=== PATIENT | male | born 1980 | race Native Hawaiian/Other Pacific Islander ===

== ENCOUNTER 2016-06-28 08:42 | Emergency (ER) | payer SELFPAY ==
[2016-06-28] MEDS ORDERED: NACL 0.9% 1000 ML 1,000 ML IV ONE (11:37)
--- NOTE | 2016-06-28 11:43 | Emergency Department Report ---
ED Seizure HPI - General Chief Complaint: Seizure Stated Complaint: SEIZURE Time Seen by Provider: 06/28/16 11:37 Source: patient Mode of arrival: Ambulatory Limitations: No Limitations - History of Present Illness Initial Comments: Patient is a 35-year-old male with no past medical history presenting to the ER status post seizure. Patient was in the grocery store when he was found down and witnessed general tonoclonic seizure by bystanders. Patient presents with a mild headache and a laceration to the back of the skull. Triage noted patient has a history of migraines and seizure disorder however after speaking to the patient says he has no medical problems, but medical records show he does have epilepsy and is on dilantin. Otherwise no fevers, chills, blurry vision, vision changes, neck pain, chest pain, shortness of breath, abdominal pain, nausea vomiting diarrhea, travel, sick contacts. MD Complaint: seizure - Related Data Previous Rx's Medication Instructions Recorded Last Taken Type Phenytoin [Dilantin] 100 mg PO BID #60 capsule 06/28/16 Unknown Rx Allergies Allergy/AdvReac Type Severity Reaction Status Date / Time No Known Allergies Allergy Unverified 04/23/14 17:03 ED Review of Systems ROS: Stated complaint: SEIZURE Other details as noted in HPI Comment: All other systems reviewed and negative ED Past Medical Hx - Past Medical History Previous Medical History?: Yes Hx Congestive Heart Failure: No Hx Diabetes: No Hx Seizures: No Hx Asthma: No Hx COPD: No - Surgical History Past Surgical History?: No - Social History Smoking Status: Never Smoker Substance Use Type: None (denies illicit drug use) - Medications Home Medications: Home Medications Medication Instructions Recorded Confirmed Last Taken Type Phenytoin [Dilantin] 100 mg PO BID #60 capsule 06/28/16 Unknown Rx ED Physical Exam - General Limitations: No Limitations General appearance: alert, in no apparent distress - Head Head exam: Present: normocephalic, other (laceration to occiput) - Eye Eye exam: Present: normal appearance - ENT ENT exam: Present: mucous membranes moist - Neck Neck exam: Present: normal inspection - Respiratory Respiratory exam: Present: normal lung sounds bilaterally. Absent: respiratory distress - Cardiovascular Cardiovascular Exam: Present: regular rate, normal rhythm. Absent: systolic murmur, diastolic murmur, rubs, gallop - GI/Abdominal GI/Abdominal exam: Present: soft, normal bowel sounds - Rectal Rectal exam: Present: deferred - Extremities Exam Extremities exam: Present: normal inspection - Back Exam Back exam: Present: normal inspection - Neurological Exam Neurological exam: Present: alert, oriented X3, CN II-XII intact, normal gait, reflexes normal. Absent: motor sensory deficit - Psychiatric Psychiatric exam: Present: normal affect, normal mood - Skin Skin exam: Present: warm, dry, normal color. Absent: rash ED Course Vital Signs 06/28/16 06/28/16 06/28/16 09:00 09:09 11:00 Temperature 98.6 F Pulse Rate 78 75 Respiratory 16 15 18 Rate Blood Pressure 103/66 Blood Pressure 95/62 [Left] O2 Sat by Pulse 98 100 100 Oximetry 06/28/16 13:00 Temperature Pulse Rate 74 Respiratory 18 Rate Blood Pressure Blood Pressure 111/72 [Left] O2 Sat by Pulse 100 Oximetry - Reevaluation(s) Reevaluation #1: 06/28/16 13:56 Pt re-evaluated, patient AAOx3 no futher seizure activity, head lac is punctate , no need for sutures or karen. Stressed to the patient need for med compliance. Pt to follow up with Dr Earnestine Nguyen Pt ambulatory without neurological dysfunction ED Medical Decision Making - Lab Data Result diagrams: 06/28/16 12:00 06/28/16 12:00 - EKG Data -: EKG Interpreted by Me (time 1301) EKG shows normal: sinus rhythm (sinus rhythm), axis (normal axis), intervals ( QTC 420 ms), ST-T waves (no ST changes, no STEMI) Rate: normal (73 bpm) - Radiology Data CT head: stable, no acute changes CT C spine: WNL - Medical Decision Making I looked at patients prior records. Pt does indeed have a seizure disorder, patient reluctant to admit he is on medication for seizures. When confronted, the patient admits he is supposed to be taking phenytoin. Pt was last taking phenytoin 200mg PO BID and follows with Dr Earnestine Nguyen. I will load the patient with phenytoin 1gm and will give him a script for phenytoin. I explained to him the importance of medication compliance and follow up with his doctors. I also instructed patient to refrain from driving for the next 6 months or until he is cleared by his neurologist or PMD Critical care attestation.: If time is entered above; I have spent that time in minutes in the direct care of this critically ill patient, excluding procedure time. ED Disposition Clinical Impression: Seizure disorder, Laceration of head, Minor head injury Disposition: DISCHARGED TO HOME OR SELFCARE Is pt being admited?: No Condition: Stable Instructions: Epilepsy (ED), Minor Head Injury (ED) Additional Instructions: PLEASE REFRAIN FROM DRIVING FOR THE NEXT 6 MONTHS, OR UNTIL CLEARED BY YOUR NEUROLOGIST OR PRIMARY CARE PHYSICIAN PLEASE MAKE AN APPT WITH YOUR DOCTOR DR EARNESTINE NGUYEN FOR A FOLLOW UP APPT Prescriptions: Phenytoin [Dilantin] 100 mg PO BID #60 capsule Referrals: PRIMARY CARE, [Primary Care Provider] - 3-5 Days
--- NOTE | 2016-06-28 11:44 | Cat Scan Report ---
CT HEAD WITHOUT CONTRAST: 06/28/16 08:42:00 CLINICAL: Fall and headache. TECHNIQUE: 2.5-mm noncontrast scans. COMPARISON:09/15/14 CT head and 09/16/14 MRI brain. FINDINGS: The ventricles and sulci are normal for age.A 1.5 x 1.4 cm left upper lobe hyperdense mass is unchanged compared to the prior exam and is consistent with a benign cavernous angioma. No other mass or mass effect. No abnormal hypodensity No hemorrhage, edema or extra-axial collection. The sinuses are clear. Normal orbits and soft tissues. The calvarium and skull base are intact. No fracture. IMPRESSION: No acute change. 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
[2016-06-28] MEDS ORDERED: BOOSTRIX IM ONE (11:46)
--- NOTE | 2016-06-28 11:49 | Cat Scan Report ---
CT CERVICAL SPINE WITHOUT CONTRAST:06/28/16 CLINICAL: Fall and neck pain. TECHNIQUE: Volumetric acquisition and 1.25-mm scan reconstructions without contrast. Sagittal and coronal reformats were performed. FINDINGS: Normal vertebral body height, alignment and disk spaces. No fracture or subluxation. Normal soft tissues and airway. No apparent disc protrusions or bulges. IMPRESSION: Normal with no apparent traumatic injury.
[2016-06-28 12:10] LABS: Basophils % (Auto) 0.8 % (0.0-1.8); Eosinophils % (Auto) 0.3 % (0.0-4.3); Hematocrit 42.6 % (35.5-45.6); Hemoglobin 14.8 gm/dl (11.8-15.2); Mean Corpuscular HGB Conc 35 % (32-34); Mean Corpuscular Hemoglobin 31 pg (28-32); Mean Corpuscular Volume 90 fl (84-94); Platelet Count 241 K/mm3 (140-440); Red Blood Count 4.74 M/mm3 (3.65-5.03); Red Cell Distribution Width 12.7 % (13.2-15.2); White Blood Count 9.9 K/mm3 (4.5-11.0)
[2016-06-28 12:39] LABS: Alanine Aminotransferase 20 units/L (7-56); Albumin 4.5 g/dL (3.9-5); Albumin/Globulin Ratio 1.5 %; Alkaline Phosphatase 113 units/L (35-129); Anion Gap 14 mmol/L; Blood Urea Nitrogen 9 mg/dL (9-20); Calcium 9.2 mg/dL (8.4-10.2); Carbon Dioxide 28 mmol/L (22-30); Chloride 99.9 mmol/L (98-107); Glucose 95 mg/dL (75-100); Potassium 4.3 mmol/L (3.6-5.0); Sodium 138 mmol/L (137-145); Total Protein 7.5 g/dL (6.3-8.2)
[2016-06-28] MEDS ORDERED: DILANTIN 1,000 MG in NACL 0.9% 250ML 250 ML IV ONE (13:00)
[2016-06-28 13:32] LABS: Urine Drugs of Abuse Note Disclamer
[2016-06-28 13:43] LABS: Bilirubin,Urine NEG (Negative); Blood,Urine SM (Negative); Ketones,Urine NEG (Negative); Leukocyte Esterase,Urine NEG (Negative); Mucus,Urine FEW /HPF; Nitrite,Urine NEG (Negative); Protein,Urine <15 mg/dL mg/dL (Negative); Urobilinogen,Urine < 2.0 mg/dL (<2.0)
[2016-06-28 14:59] VITALS: BP 103/53
== END 2016-06-28 14:59 | disposition home or self-care (01) ==
LOC: ED 08:42
DX: G40.909 Epilepsy, unspecified, not intractable, without status epilepticus (principal); S01.91XA Laceration without foreign body of unspecified part of head, initial encounter; X58.XXXA Exposure to other specified factors, initial encounter; Y93.9 Activity, unspecified; Y92.9 Unspecified place or not applicable; Y99.9 Unspecified external cause status
CPT/HCPCS: 36415; 70450; 72125; 80053; 80185; 80307; 81001; 82962; 85025; 90471; 90715; 93005; 93010; 96361; 96365; 99285; J1165; J7030; J7050

== ENCOUNTER 2017-02-07 17:56 | Emergency (ER) | payer SELFPAY ==
--- NOTE | 2017-02-07 18:38 | Emergency Department Report ---
ED Seizure HPI - General Stated Complaint: SEIZURE Time Seen by Provider: 02/07/17 18:14 Source: patient Limitations: Language Barrier - History of Present Illness Initial Comments: 36-year-old male the past 90 mL presents to the hospital after having one seizure today. Patient states he's been compliant with his Dilantin 100 mg 3 times a day and his Keppra 1000 mg twice a day but does admit to missing a couple of doses here and there. He is due for a second dose of Keppra at 8 PM. He denies any pain currently. 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 - Related Data Previous Rx's Medication Instructions Recorded Last Taken Type Phenytoin [Dilantin] 100 mg PO BID #60 capsule 06/28/16 Unknown Rx Allergies Allergy/AdvReac Type Severity Reaction Status Date / Time No Known Allergies Allergy Unverified 04/23/14 17:03 ED Review of Systems ROS: Stated complaint: SEIZURE Other details as noted in HPI Comment: All other systems reviewed and negative Other: Constitutional: No fevers chills Eyes: No eye pain visual changes ENT: No ear pain or throat pain Neck: Denies pain Respiratory: Denies cough wheezing shortness of breath Cardiovascular: Denies chest pain, palpitations, syncope GI: Denies abdominal pain, nausea, vomiting, diarrhea : Denies dysuria Musculoskeletal: Denies back pain Skin: Denies rash, lesions, erythema Neurologic: Denies headache, numbness, weakness Psychiatric: Denies suicidal ideation, hallucinations ED Past Medical Hx - Past Medical History Hx Congestive Heart Failure: No Hx Diabetes: No Hx Seizures: No Hx Asthma: No Hx COPD: No - Social History Smoking Status: Never Smoker Substance Use Type: None (denies illicit drug use) - Medications Home Medications: Home Medications Medication Instructions Recorded Confirmed Last Taken Type Phenytoin [Dilantin] 100 mg PO BID #60 capsule 06/28/16 Unknown Rx ED Physical Exam - Other Other exam information: General: No limitations, patient is alert in no acute distress Head exam: Atraumatic, normocephalic Eyes exam: Normal appearance ENT: Moist mucous membrane, normal oropharynx Neck exam: Normal inspection, full range of motion, no meningismus nontender Respiratory exam: Clear to auscultation bilateral, no wheezes, rales, crackles Cardiovascular: Normal rate and rhythm, normal heart sounds Abdomen: Soft, nondistended, and nontender, with normal bowel sounds, no rebound, or guarding Extremity: Full range of motion normal inspection no deformity Back: Normal Inspection, full range of motion, no tenderness Neurologic: Alert, oriented x3, cranial nerves intact, no motor or sensory deficit Psychiatric: normal affect, normal mood Skin: Warm, dry, intact ED Course Vital Signs 02/07/17 18:39 Temperature 99.8 F H Pulse Rate 86 Blood Pressure 148/85 O2 Sat by Pulse 99 Oximetry ED Medical Decision Making - Lab Data Result diagrams: 02/07/17 18:38 02/07/17 18:38 Lab Results 02/07/17 02/07/17 02/07/17 Range/Units 18:38 18:38 18:38 WBC 7.6 (4.5-11.0) K/mm3 RBC 4.70 (3.65-5.03) M/mm3 Hgb 14.7 (11.8-15.2) gm/dl Hct 42.8 (35.5-45.6) % MCV 91 (84-94) fl MCH 31 (28-32) pg MCHC 34 (32-34) % RDW 13.0 L (13.2-15.2) % Plt Count 218 (140-440) K/mm3 Lymph % (Auto) 18.3 (13.4-35.0) % [place] % (Auto) 6.9 (0.0-7.3) % Eos % (Auto) 1.8 (0.0-4.3) % Baso % (Auto) 0.7 (0.0-1.8) % Lymph # 1.4 (1.2-5.4) K/mm3 [place] # 0.5 (0.0-0.8) K/mm3 Eos # 0.1 (0.0-0.4) K/mm3 Baso # 0.1 (0.0-0.1) K/mm3 Seg Neutrophils % 72.3 H (40.0-70.0) % Seg Neutrophils # 5.5 (1.8-7.7) K/mm3 Sodium 139 (137-145) mmol/L Potassium 4.1 (3.6-5.0) mmol/L Chloride 101.4 (98-107) mmol/L Carbon Dioxide 22 (22-30) mmol/L Anion Gap 20 mmol/L BUN 12 (9-20) mg/dL Creatinine 0.6 L (0.8-1.5) mg/dL Estimated GFR > 60 ml/min BUN/Creatinine Ratio 20 % Glucose 107 H (75-100) mg/dL Calcium 9.1 (8.4-10.2) mg/dL Magnesium 1.90 (1.7-2.3) mg/dL Phenytoin 8.5 L (10.0-20.0) ug/mL - Medical Decision Making Patient Dilantin was subtherapeutic and likely the cause of this breakthrough seizure. No other acute lab or physical abnormality identified. Patient will be discharged home continue his current medications he states he does not need a refill in his meds - Differential Diagnosis medication noncompliance, subtherapeutic level, electrolyte abnormality, Critical Care Time: No Critical care attestation.: If time is entered above; I have spent that time in minutes in the direct care of this critically ill patient, excluding procedure time. ED Disposition Clinical Impression: Seizure, Subtherapeutic serum dilantin level Disposition: TO HOME OR SELFCARE Is pt being admited?: No Does the pt Need Aspirin: No Condition: Stable Instructions: Epilepsy (ED) Additional Instructions: Continue your medication and take every day as scheduled and do not miss doses or take doses late. Follow-up with his doctor. Return if symptoms worsen. Contine tomando brenner medicamento y tome todos los swift segn lo programado y no se pierda dosis o tome dosis tarde. Seguimiento con brenner mdico. Regrese si los s ntomas empeoran. Referrals: PRIMARY CARE, [Primary Care Provider] - 3-5 Days DICK NOWAK MD [Staff Physician] - 3-5 Days (neurologist) Time of Disposition: 21:23 Print Language: SURINAMESE
[2017-02-07 18:58] LABS: Basophils # (Auto) 0.1 K/mm3 (0.0-0.1); Basophils % (Auto) 0.7 % (0.0-1.8); Eosinophils # (Auto) 0.1 K/mm3 (0.0-0.4); Eosinophils % (Auto) 1.8 % (0.0-4.3); Hematocrit 42.8 % (35.5-45.6); Hemoglobin 14.7 gm/dl (11.8-15.2); Lymphocytes # (Auto) 1.4 K/mm3 (1.2-5.4); Lymphocytes % (Auto) 18.3 % (13.4-35.0); Mean Corpuscular HGB Conc 34 % (32-34); Mean Corpuscular Hemoglobin 31 pg (28-32); Mean Corpuscular Volume 91 fl (84-94); Monocytes # (Auto) 0.5 K/mm3 (0.0-0.8); Monocytes % (Auto) 6.9 % (0.0-7.3); Platelet Count 218 K/mm3 (140-440)
[2017-02-07 19:18] LABS: BUN/Creatinine Ratio 20; Blood Urea Nitrogen 12 mg/dL (9-20); Calcium 9.1 mg/dL (8.4-10.2); Hemolysis Index 27
[2017-02-07] MEDS ORDERED: KEPPRA PO ONE (19:18)
[2017-02-07] MEDS ORDERED: DILANTIN 1,000 MG in NACL 0.9% 250ML 250 ML IV ONE (20:00)
[2017-02-07 21:55] VITALS: BP 128/88
== END 2017-02-07 21:55 | disposition home or self-care (01) ==
LOC: ED 17:56
DX: R56.9 Unspecified convulsions (principal); R79.1 Abnormal coagulation profile
CPT/HCPCS: 36415; 80048; 80185; 83735; 85025; 96365; 99284; J1165; J7050

== ENCOUNTER 2017-05-31 12:18 | Emergency (ER) | payer SELFPAY ==
[2017-05-31] MEDS ORDERED: KEPPRA PO ONE (13:20)
--- NOTE | 2017-05-31 13:25 | Emergency Department Report ---
ED Seizure HPI - General Chief Complaint: Seizure Stated Complaint: SEIZURES Time Seen by Provider: 05/31/17 13:06 Source: patient, EMS Mode of arrival: Stretcher Limitations: No Limitations - History of Present Illness Initial Comments: Patient is 36 years old male history of seizure on Dilantin and Keppra. Patient presented to the ER after one episode of seizure that happened at home. Patient is back to normal and he is not postictal anymore. Patient denied any fever, headache, neck pain or neck stiffness. Patient denied any injury or trauma. He stated that he is maintaining his medication is supposed to. He also stated that he is not been getting enough sleep. MD Complaint: seizure -: Sudden Description of Episode: loss of consciousness, tonic-clonic movement Witnessed:: Yes Trauma: No Seizure History: known seizure disorder, history of non-compliance Place: home Possible Precipitating Event: none Associated Symptoms: denies other symptoms. denies: chest pain, confusion, cough, diaphoresis, fever/chills, loss of appetite, malaise, rash, shortness of breath, syncope, weakness, tongue injury, shoulder dislocation Treatments Prior to Arrival: none - Related Data Home Medications Medication Instructions Recorded Confirmed Last Taken Phenytoin [Dilantin] 200 mg PO TID 05/31/17 05/31/17 05/31/17 08:00 Allergies Allergy/AdvReac Type Severity Reaction Status Date / Time No Known Allergies Allergy Unverified 04/23/14 17:03 ED Review of Systems ROS: Stated complaint: SEIZURES Other details as noted in HPI Comment: All other systems reviewed and negative Constitutional: denies: chills, fever Respiratory: denies: cough, orthopnea, shortness of breath, SOB with exertion, SOB at rest Cardiovascular: denies: chest pain, palpitations, dyspnea on exertion, orthopnea Gastrointestinal: denies: abdominal pain, nausea, vomiting, diarrhea, constipation, hematemesis, melena, hematochezia Genitourinary: denies: urgency, dysuria, frequency, hematuria, discharge Neurological: denies: headache, weakness, numbness, paresthesias ED Past Medical Hx - Past Medical History Previous Medical History?: Yes Hx Congestive Heart Failure: No Hx Diabetes: No Hx Seizures: Yes Hx Asthma: No Hx COPD: No - Surgical History Past Surgical History?: No - Social History Smoking Status: Never Smoker Substance Use Type: None - Medications Home Medications: Home Medications Medication Instructions Recorded Confirmed Last Taken Type Phenytoin [Dilantin] 200 mg PO TID 05/31/17 05/31/17 05/31/17 08:00 History ED Physical Exam - General Limitations: No Limitations General appearance: alert, in no apparent distress - Head Head exam: Present: atraumatic, normocephalic, normal inspection - Eye Eye exam: Present: normal appearance, PERRL - ENT ENT exam: Present: normal exam, normal orophraynx, mucous membranes moist - Neck Neck exam: Present: normal inspection, full ROM. Absent: tenderness, meningismus - Respiratory Respiratory exam: Present: normal lung sounds bilaterally. Absent: respiratory distress, chest wall tenderness - Cardiovascular Cardiovascular Exam: Present: regular rate, normal rhythm, normal heart sounds - GI/Abdominal GI/Abdominal exam: Present: soft, normal bowel sounds. Absent: distended, tenderness, guarding, rebound, rigid, organomegaly, mass, bruit, pulsatile mass , hernia - Extremities Exam Extremities exam: Present: normal inspection, full ROM, normal capillary refill - Back Exam Back exam: Present: normal inspection, full ROM. Absent: tenderness, CVA tenderness (R), CVA tenderness (L), muscle spasm, paraspinal tenderness, vertebral tenderness - Neurological Exam Neurological exam: Present: alert, oriented X3, CN II-XII intact, normal gait - Skin Skin exam: Present: warm, intact, normal color ED Course Vital Signs 05/31/17 05/31/17 05/31/17 12:53 12:54 13:01 Temperature 98.6 F 98.4 F Pulse Rate 90 78 Respiratory 18 14 14 Rate Blood Pressure 125/78 114/75 Blood Pressure 114/75 [Right] O2 Sat by Pulse 98 96 96 Oximetry - Reevaluation(s) Reevaluation #1: 05/31/17 15:15 Patient observed in the ER, no seizure. I advised patient to be compliant with his medication. I also advised him to limit his his screening time and have enough sleep. I also advised him to follow-up with his neurologist in the next 2-3 days. ED Medical Decision Making - Lab Data Result diagrams: 05/31/17 13:27 05/31/17 13:27 Critical care attestation.: If time is entered above; I have spent that time in minutes in the direct care of this critically ill patient, excluding procedure time. ED Disposition Clinical Impression: Seizure Disposition: DC-01 TO HOME OR SELFCARE Is pt being admited?: No Condition: Stable Instructions: Recurrent Seizures Adult (ED)
[2017-05-31 13:41] LABS: Basophils # (Auto) 0.1 K/mm3 (0.0-0.1); Basophils % (Auto) 1.2 % (0.0-1.8); Eosinophils # (Auto) 0.5 K/mm3 (0.0-0.4); Eosinophils % (Auto) 6.2 % (0.0-4.3); Hematocrit 44.4 % (35.5-45.6); Hemoglobin 15.1 gm/dl (11.8-15.2); Lymphocytes # (Auto) 1.3 K/mm3 (1.2-5.4); Lymphocytes % (Auto) 17.3 % (13.4-35.0); Mean Corpuscular HGB Conc 34 % (32-34); Mean Corpuscular Hemoglobin 31 pg (28-32); Mean Corpuscular Volume 90 fl (84-94); Monocytes # (Auto) 0.6 K/mm3 (0.0-0.8); Monocytes % (Auto) 7.7 % (0.0-7.3); Platelet Count 261 K/mm3 (140-440); Red Blood Count 4.92 M/mm3 (3.65-5.03); Red Cell Distribution Width 12.9 % (13.2-15.2)
[2017-05-31 13:57] LABS: Alanine Aminotransferase 33 units/L (7-56); Albumin 4.2 g/dL (3.9-5); BUN/Creatinine Ratio 22; Blood Urea Nitrogen 13 mg/dL (9-20); Calcium 8.6 mg/dL (8.4-10.2); Hemolysis Index 4
[2017-05-31 14:52] LABS: Bilirubin,Urine NEG (Negative); Blood,Urine NEG (Negative); Color,Urine Yellow (Yellow); Protein,Urine <15 mg/dL mg/dL (Negative); RBC,Urine < 1.0 /HPF (0.0-6.0); Urobilinogen,Urine < 2.0 mg/dL (<2.0); WBC,Urine < 1.0 /HPF (0.0-6.0)
[2017-05-31 15:08] LABS: Amphetamine Screen,Urine PRESUMPTIVE NEGATIVE; Benzodiazepines Screen,Urine PRESUMPTIVE NEGATIVE; Cannabinoid Screen,Urine PRESUMPTIVE NEGATIVE; Cocaine Screen,Urine PRESUMPTIVE NEGATIVE; Methadone Screen,Urine PRESUMPTIVE NEGATIVE; Opiate Screen,Urine PRESUMPTIVE NEGATIVE
[2017-05-31 16:28] VITALS: BP 114/75
== END 2017-05-31 16:26 | disposition home or self-care (01) ==
LOC: ED 12:18
DX: R56.9 Unspecified convulsions (principal)
CPT/HCPCS: 36415; 80053; 80185; 80307; 81001; 85025; 99284

== ENCOUNTER 2017-06-06 09:19 | Emergency (ER) | payer OTHER ==
[2017-06-06] MEDS ORDERED: KEPPRA 500 MG in D5W 100 ML IV ONE (10:09)
[2017-06-06] MEDS ORDERED: DILANTIN 1,000 MG in NACL 0.9% 250ML 250 ML IV ONE (10:09)
--- NOTE | 2017-06-06 11:11 | Emergency Department Report ---
ED Seizure HPI - General Chief Complaint: Seizure Stated Complaint: SEIZURE Time Seen by Provider: 06/06/17 10:04 Source: EMS Mode of arrival: Stretcher Limitations: Language Barrier - History of Present Illness Initial Comments: Patient is 36 years old male with history of seizure he is taking to medication Keppra and Dilantin. Patient brought to the ER for evaluation after he had one episode of grand mal seizure. Patient is alert oriented and able to give more history. Patient stated that he has been taking his medication regularly. Patient was seen here one week ago for the same symptoms. He denied any head injury or other apparent trauma. MD Complaint: seizure -: Sudden Description of Episode: loss of consciousness, tonic-clonic movement, bladder incontinence, bowel incontinence, post-event confusion Witnessed:: Yes Trauma: No Seizure History: known seizure disorder Place: work Possible Precipitating Event: none Associated Symptoms: denies other symptoms Treatments Prior to Arrival: none - Related Data Home Medications Medication Instructions Recorded Confirmed Last Taken Phenytoin [Dilantin] 200 mg PO TID 05/31/17 05/31/17 05/31/17 08:00 Allergies Allergy/AdvReac Type Severity Reaction Status Date / Time No Known Allergies Allergy Unverified 04/23/14 17:03 ED Review of Systems ROS: Stated complaint: SEIZURE Other details as noted in HPI Comment: All other systems reviewed and negative Constitutional: denies: chills, fever Respiratory: denies: cough, shortness of breath, SOB with exertion Cardiovascular: denies: chest pain, palpitations, dyspnea on exertion Gastrointestinal: denies: abdominal pain, nausea, vomiting, diarrhea, constipation, hematemesis, hematochezia Musculoskeletal: denies: back pain Neurological: denies: headache, weakness, numbness, paresthesias ED Past Medical Hx - Past Medical History Hx Congestive Heart Failure: No Hx Diabetes: No Hx Seizures: Yes Hx Asthma: No Hx COPD: No - Social History Smoking Status: Unknown if ever smoked - Medications Home Medications: Home Medications Medication Instructions Recorded Confirmed Last Taken Type Phenytoin [Dilantin] 200 mg PO TID 05/31/17 05/31/17 05/31/17 08:00 History ED Physical Exam - General Limitations: Language Barrier General appearance: alert, in no apparent distress - Head Head exam: Present: atraumatic, normocephalic - Eye Eye exam: Present: normal appearance, PERRL - ENT ENT exam: Present: normal exam, normal orophraynx, mucous membranes moist - Neck Neck exam: Present: normal inspection, full ROM. Absent: tenderness, meningismus, lymphadenopathy, thyromegaly - Respiratory Respiratory exam: Present: normal lung sounds bilaterally. Absent: respiratory distress, wheezes, rales, rhonchi, accessory muscle use, decreased breath sounds , prolonged expiratory - Cardiovascular Cardiovascular Exam: Present: regular rate, normal rhythm, normal heart sounds - GI/Abdominal GI/Abdominal exam: Present: soft, normal bowel sounds. Absent: distended, tenderness, guarding, rebound, rigid, organomegaly, mass, bruit, pulsatile mass - Extremities Exam Extremities exam: Present: normal inspection, full ROM, normal capillary refill - Back Exam Back exam: Present: normal inspection, full ROM. Absent: tenderness, CVA tenderness (R), CVA tenderness (L), muscle spasm, paraspinal tenderness, vertebral tenderness - Neurological Exam Neurological exam: Present: alert, oriented X3, CN II-XII intact, normal gait - Psychiatric Psychiatric exam: Present: normal affect, normal mood. Absent: depressed, agitated - Skin Skin exam: Present: warm, intact, normal color ED Course Vital Signs 06/06/17 06/06/17 10:14 10:15 Temperature 98.2 F Pulse Rate 94 H Respiratory 14 14 Rate Blood Pressure 112/71 [Left] O2 Sat by Pulse 98 98 Oximetry - Reevaluation(s) Reevaluation #1: 06/06/17 15:58 Patient observed in the ER. No seizure activity observed. Again I discussed with the patient the need to be compliant with his medication especially the Keppra. ED Medical Decision Making - Lab Data Result diagrams: 06/06/17 11:59 06/06/17 11:59 Critical care attestation.: If time is entered above; I have spent that time in minutes in the direct care of this critically ill patient, excluding procedure time. ED Disposition Clinical Impression: Seizure Disposition: DC-01 TO HOME OR SELFCARE Is pt being admited?: No Condition: Stable Instructions: Recurrent Seizures Adult (ED)
[2017-06-06 13:02] LABS: Basophils % (Auto) 0.3 % (0.0-1.8); Eosinophils % (Auto) 0.2 % (0.0-4.3); Hematocrit 43.7 % (35.5-45.6); Hemoglobin 15.2 gm/dl (11.8-15.2); Lymphocytes # (Auto) 1.1 K/mm3 (1.2-5.4); Mean Corpuscular HGB Conc 35 % (32-34); Mean Corpuscular Hemoglobin 31 pg (28-32); Mean Corpuscular Volume 89 fl (84-94); Monocytes # (Auto) 0.6 K/mm3 (0.0-0.8); Monocytes % (Auto) 4.8 % (0.0-7.3); Platelet Count 264 K/mm3 (140-440); Red Blood Count 4.89 M/mm3 (3.65-5.03); Red Cell Distribution Width 12.7 % (13.2-15.2)
[2017-06-06 13:36] LABS: Alanine Aminotransferase 28 units/L (7-56); Albumin 4.4 g/dL (3.9-5); BUN/Creatinine Ratio 19; Blood Urea Nitrogen 13 mg/dL (9-20); Calcium 9.2 mg/dL (8.4-10.2); Hemolysis Index 1
[2017-06-06 16:52] VITALS: BP 101/67
== END 2017-06-06 17:03 | disposition home or self-care (01) ==
LOC: ED 09:19
DX: G40.909 Epilepsy, unspecified, not intractable, without status epilepticus (principal)
CPT/HCPCS: 36415; 80053; 80185; 85025; 96365; 96375; 99284; G0480; J1165; J1953; J7050; 80320

== ENCOUNTER 2018-09-02 22:40 | Emergency (ER) | payer OTHER ==
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
[2018-09-02 23:46] LABS: Basophils % (Auto) 0.6 % (0.0-1.8); Eosinophils # (Auto) 0.2 K/mm3 (0.0-0.4); Eosinophils % (Auto) 2.5 % (0.0-4.3); Hematocrit 44.4 % (35.5-45.6); Hemoglobin 15.5 gm/dl (11.8-15.2); Lymphocytes # (Auto) 1.6 K/mm3 (1.2-5.4); Lymphocytes % (Auto) 21.4 % (13.4-35.0); Mean Corpuscular HGB Conc 35 % (32-34); Mean Corpuscular Volume 91 fl (84-94); Monocytes # (Auto) 0.5 K/mm3 (0.0-0.8); Monocytes % (Auto) 6.6 % (0.0-7.3); Platelet Count 241 K/mm3 (140-440)
[2018-09-03 00:08] LABS: Alanine Aminotransferase 23 units/L (7-56); Albumin 4.8 g/dL (3.9-5); BUN/Creatinine Ratio 26; Blood Urea Nitrogen 18 mg/dL (9-20); Calcium 9.4 mg/dL (8.4-10.2); Hemolysis Index 9
--- NOTE | 2018-09-03 00:44 | Cat Scan Report ---
CT HEAD WITHOUT CONTRAST INDICATION : Seizure. TECHNIQUE: Axial, coronal and sagittal CT imaging was performed from the skull apex through the skul l base without contrast. All CT scans at this location are performed using CT dose reduction for ALA RA by means of automated exposure control. COMPARISON: None available. 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 No additional m ass is seen. No midline shift, hemorrhage or extra-axial collection is identified. VENTRICLES: Symmetric and normal in size. SOFT TISSUES: Soft tissues including the orbits appear normal. BONES: No acute osseous abnormality. SINUSES: No significant abnormality. ADDITIONAL FINDINGS: None. IMPRESSION: 1. No acute intracranial abnormality. 2. Stable left cavernous angioma. Signer Name: Chriss Neves MD Signed: 09/03/2018 12:40 AM Workstation Name: [id number]
[2018-09-03 02:28] VITALS: BP 111/67
== END 2018-09-03 02:55 | disposition home or self-care (01) ==
LOC: ED 22:40
DX: R56.9 Unspecified convulsions (principal); R51 Headache; V49.49XA Driver injured in collision with other motor vehicles in traffic accident, initial encounter; Y93.89 Activity, other specified; Y92.89 Other specified places as the place of occurrence of the external cause; Y99.8 Other external cause status
CPT/HCPCS: 36415; 70450; 80053; 80185; 85025

== ENCOUNTER 2018-12-17 14:50 | Emergency (ER) | payer SELFPAY ==
[2018-12-17] MEDS ORDERED: levETIRAcetam 1000 MG/NS 0.75% 1,000 MG/100 ML BAG IV ONE (15:38)
--- NOTE | 2018-12-17 15:38 | Emergency Department Report ---
ED Seizure HPI - General Chief Complaint: Seizure Stated Complaint: POSS SEIZURE Time Seen by Provider: 12/17/18 15:36 Source: patient, EMS, diplomatic interpreter Mode of arrival: Stretcher Limitations: Language Barrier - History of Present Illness Initial Comments: Is a 38-year-old male that presents emergency room for seizure activity. Patient has a history of epilepsy. Patient is compliant with his medications. Patient states he was at work felt dizzy and sat down and had a seizure. Patient states he is feeling fine now. Patient denies any complaints at this time. Patient states he has a neurologist and is compliant with his medications. Patient denies dizziness at this time. Patient denies blurry vision. Patient denies trauma. Patient denies headache. Patient denies prolonged loss of consciousness. Patient states he was witnessed by his coworkers and he sees for a few seconds and then woke up. Patient denies confusion. MD Complaint: seizure -: Sudden Description of Episode: loss of consciousness, tonic-clonic movement -: second(s) Witnessed:: Yes Trauma: No Seizure History: known seizure disorder, compliant with medication Place: work Possible Precipitating Event: none Associated Symptoms: denies: chest pain, confusion, cough, diaphoresis, fever/chills, loss of appetite, malaise, rash, shortness of breath, syncope, weakness, tongue injury, shoulder dislocation Treatments Prior to Arrival: none - Related Data Home Medications Medication Instructions Recorded Confirmed Last Taken Phenytoin [Dilantin] 200 mg PO TID 05/31/17 05/31/17 05/31/17 08:00 Previous Rx's Medication Instructions Recorded Last Taken Type levETIRAcetam [Keppra TAB] 750 mg PO BID #60 tablet 06/06/17 Unknown Rx Acetaminophen/Codeine [Tylenol 1 tab PO Q4HR PRN #12 tablet 09/03/18 Unknown Rx /Codeine # 3 tab] Metaxalone [Skelaxin] 800 mg PO TID PRN #15 tablet 09/03/18 Unknown Rx Allergies Allergy/AdvReac Type Severity Reaction Status Date / Time No Known Allergies Allergy Unverified 04/23/14 17:03 ED Review of Systems ROS: Stated complaint: POSS SEIZURE Other details as noted in HPI Constitutional: denies: chills, fever Eyes: denies: eye pain, eye discharge, vision change ENT: denies: ear pain, throat pain Respiratory: denies: cough, shortness of breath, wheezing Cardiovascular: denies: chest pain, palpitations Endocrine: no symptoms reported Gastrointestinal: denies: abdominal pain, nausea, diarrhea Genitourinary: denies: urgency, dysuria Musculoskeletal: denies: back pain, joint swelling, arthralgia Skin: denies: rash, lesions Neurological: denies: headache, weakness, paresthesias Psychiatric: denies: anxiety, depression Hematological/Lymphatic: denies: easy bleeding, easy bruising ED Past Medical Hx - Past Medical History Previous Medical History?: Yes Hx Congestive Heart Failure: No Hx Diabetes: No Hx Seizures: Yes Hx Asthma: No Hx COPD: No - Surgical History Past Surgical History?: No - Family History Family history: no significant - Social History Smoking Status: Never Smoker Substance Use Type: None - Medications Home Medications: Home Medications Medication Instructions Recorded Confirmed Last Taken Type Phenytoin [Dilantin] 200 mg PO TID 05/31/17 05/31/17 05/31/17 08:00 History levETIRAcetam [Keppra TAB] 750 mg PO BID #60 tablet 06/06/17 Unknown Rx Acetaminophen/Codeine [Tylenol 1 tab PO Q4HR PRN #12 tablet 09/03/18 Unknown Rx /Codeine # 3 tab] Metaxalone [Skelaxin] 800 mg PO TID PRN #15 tablet 09/03/18 Unknown Rx ED Physical Exam - General Limitations: Language Barrier General appearance: alert, in no apparent distress - Head Head exam: Present: atraumatic, normocephalic - Eye Eye exam: Present: normal appearance, PERRL Pupils: Present: normal accommodation - ENT ENT exam: Present: mucous membranes moist - Neck Neck exam: Present: normal inspection - Respiratory Respiratory exam: Present: normal lung sounds bilaterally. Absent: respiratory distress, wheezes, rales - Cardiovascular Cardiovascular Exam: Present: regular rate, normal rhythm. Absent: systolic murmur, diastolic murmur, rubs, gallop - GI/Abdominal GI/Abdominal exam: Present: soft, normal bowel sounds. Absent: distended, tenderness, guarding - Rectal Rectal exam: Present: deferred - Extremities Exam Extremities exam: Present: normal inspection, full ROM - Back Exam Back exam: Present: normal inspection, full ROM - Neurological Exam Neurological exam: Present: alert, oriented X3, CN II-XII intact, reflexes normal. Absent: motor sensory deficit - Psychiatric Psychiatric exam: Present: normal affect, normal mood - Skin Skin exam: Present: warm, dry, intact, normal color. Absent: rash ED Course Vital Signs 12/17/18 15:30 Temperature 98.0 F Pulse Rate 93 H Respiratory 16 Rate Blood Pressure 118/83 [Left] O2 Sat by Pulse 96 Oximetry - Reevaluation(s) Reevaluation #1: I discussed all results with patient. I discussed plan of care outpatient. Patient stable for discharge. Patient discharged home. Patient agrees with plan of care and discharge. Patient given discharge instructions. Patient voiced understanding of discharge instructions. 12/17/18 16:53 ED Medical Decision Making - Lab Data Result diagrams: 12/17/18 15:54 12/17/18 15:54 - Medical Decision Making Patient is a 38-year-old male that presents emergency room with seizure activity. Patient has a history of epilepsy and is compliant with medications. Patient had labs done in the ER and were unremarkable. Patient stable for discharge. Patient discharged home. Patient given discharge instructions. Patient will need to follow up with his neurologist and primary care within 2-3 days. Patient will need to avoid driving. Patient will need to avoid work until cleared by his neurologist. Patient to continue all of his medications. - Differential Diagnosis seizure activity. Epilepsy. Compliance Critical care attestation.: If time is entered above; I have spent that time in minutes in the direct care of this critically ill patient, excluding procedure time. ED Disposition Clinical Impression: Seizure Disposition: DC-01 TO HOME OR SELFCARE Is pt being admited?: No Does the pt Need Aspirin: No Condition: Stable Instructions: Epilepsy (ED), Recurrent Seizures Adult (ED) Additional Instructions: Patient to follow-up with primary care in 2-3 days. Patient to follow-up with neurologist in 2-3 days. Patient to return to ER condition worsens. Patient to continue all seizure medications. Patient to rest. Patient to avoid driving. Patient to avoid work until cleared by neurologist and primary care. Time of Disposition: 16:55 Print Language: HUNGARIAN
[2018-12-17 16:01] LABS: Hematocrit 41.4 % (35.5-45.6); Hemoglobin 14.1 gm/dl (11.8-15.2); Mean Corpuscular HGB Conc 34 % (32-34); Mean Corpuscular Volume 91 fl (84-94); Platelet Count 201 K/mm3 (140-440); Red Blood Count 4.54 M/mm3 (3.65-5.03); Red Cell Distribution Width 12.4 % (13.2-15.2)
[2018-12-17 16:27] LABS: Alanine Aminotransferase 22 units/L (7-56); Albumin 4.4 g/dL (3.9-5); BUN/Creatinine Ratio 18; Blood Urea Nitrogen 11 mg/dL (9-20); Calcium 9.2 mg/dL (8.4-10.2); Hemolysis Index 9
[2018-12-17 17:33] VITALS: BP 117/72
== END 2018-12-17 17:20 | disposition home or self-care (01) ==
LOC: ED 14:50
DX: G40.89 Other seizures (principal); Z79.899 Other long term (current) drug therapy
CPT/HCPCS: 36415; 80053; 85027; 96374; 99284; J1953

== ENCOUNTER 2019-03-27 12:27 | Emergency (ER) | payer SELFPAY ==
[2019-03-27] MEDS ORDERED: levETIRAcetam 1000 MG/NS 0.75% 1,000 MG/100 ML BAG IV ONE (12:41)
--- NOTE | 2019-03-27 12:44 | Emergency Department Report ---
ED Seizure HPI - General Chief Complaint: Seizure Stated Complaint: SEZIURE Time Seen by Provider: 03/27/19 12:36 Source: patient Mode of arrival: Ambulatory Limitations: No Limitations - History of Present Illness Initial Comments: Mr. Jones is a 38-year-old male with history of epilepsy who has had several breakthrough seizures recently. On he had a breakthrough seizure while laying on a couch. He consequently subsequently fell onto the floor. He has a black eye and healing laceration on the right side of his face as a result. Today he had 4 seizures within the last 4 hours. He has been compliant with his medication. He has been in his normal state of health without physical concerns otherwise. Japanese interpretation provided by family member at the bedside according to patient's wishes Complaint: seizure -: days(s) (3) Witnessed:: Yes Trauma: Yes Seizure History: known seizure disorder Place: home Possible Precipitating Event: none Associated Symptoms: other (Black-eyed right facial laceration) - Related Data Home Medications Medication Instructions Recorded Confirmed Last Taken Phenytoin [Dilantin] 200 mg PO TID 05/31/17 05/31/17 05/31/17 08:00 Previous Rx's Medication Instructions Recorded Last Taken Type levETIRAcetam [Keppra TAB] 750 mg PO BID #60 tablet 06/06/17 Unknown Rx Acetaminophen/Codeine [Tylenol 1 tab PO Q4HR PRN #12 tablet 09/03/18 Unknown Rx /Codeine # 3 tab] Metaxalone [Skelaxin] 800 mg PO TID PRN #15 tablet 09/03/18 Unknown Rx levETIRAcetam [Keppra TAB] 500 mg PO BID 30 Days #60 tablet 03/27/19 Unknown Rx Allergies Allergy/AdvReac Type Severity Reaction Status Date / Time No Known Allergies Allergy Unverified 04/23/14 17:03 ED Review of Systems ROS: Stated complaint: SEZIURE Other details as noted in HPI Comment: All other systems reviewed and negative Constitutional: denies: fever, malaise ED Past Medical Hx - Past Medical History Previous Medical History?: Yes Hx Congestive Heart Failure: No Hx Diabetes: No Hx Seizures: Yes Hx Asthma: No Hx COPD: No - Surgical History Past Surgical History?: No - Social History Smoking Status: Never Smoker Substance Use Type: None - Medications Home Medications: Home Medications Medication Instructions Recorded Confirmed Last Taken Type Phenytoin [Dilantin] 200 mg PO TID 05/31/17 05/31/17 05/31/17 08:00 History levETIRAcetam [Keppra TAB] 750 mg PO BID #60 tablet 06/06/17 Unknown Rx Acetaminophen/Codeine [Tylenol 1 tab PO Q4HR PRN #12 tablet 09/03/18 Unknown Rx /Codeine # 3 tab] Metaxalone [Skelaxin] 800 mg PO TID PRN #15 tablet 09/03/18 Unknown Rx levETIRAcetam [Keppra TAB] 500 mg PO BID 30 Days #60 tablet 03/27/19 Unknown Rx ED Physical Exam - General Limitations: Language Barrier (Japanese-speaking patient) General appearance: alert, in no apparent distress, other (Sitting upright comfortably with legs crossed left ankle hands crossed behind his head) - Head Head exam: Present: normocephalic, other (Periorbital ecchymosis right 2 cm healing laceration lateral to the eyebrow) - Eye Eye exam: Present: normal appearance, EOMI - ENT ENT exam: Present: mucous membranes moist - Neck Neck exam: Present: normal inspection, full ROM - Respiratory Respiratory exam: Present: normal lung sounds bilaterally. Absent: respiratory distress, wheezes, rales, rhonchi - Cardiovascular Cardiovascular Exam: Present: regular rate, normal rhythm, normal heart sounds. Absent: systolic murmur, diastolic murmur, rubs, gallop - GI/Abdominal GI/Abdominal exam: Present: soft, normal bowel sounds. Absent: distended, tenderness, guarding, rebound - Rectal Rectal exam: Present: deferred - Extremities Exam Extremities exam: Present: normal inspection - Back Exam Back exam: Present: normal inspection - Neurological Exam Neurological exam: Present: alert, oriented X3 - Psychiatric Psychiatric exam: Present: normal affect, normal mood - Skin Skin exam: Present: warm, dry, intact, normal color. Absent: rash ED Course Vital Signs 03/27/19 03/27/19 12:30 12:37 Temperature 98.4 F Pulse Rate 85 80 Respiratory 18 18 Rate Blood Pressure 106/67 Blood Pressure 93/52 [Left] O2 Sat by Pulse 97 99 Oximetry - Reevaluation(s) Reevaluation #1: 02/16/20 12:59 I was called to the bedside. I witnessed patient to have 30 second generalized tonic-clonic seizure here in the emergency department. IV lorazepam provided. ED Medical Decision Making - Lab Data Result diagrams: 03/27/19 12:40 03/27/19 12:40 Laboratory Results - last 24 hr 03/27/19 03/27/19 03/27/19 12:40 12:40 13:12 WBC 12.1 H RBC 4.40 Hgb 13.7 Hct 39.2 MCV 89 MCH 31 MCHC 35 H RDW 12.4 L Plt Count 309 Sodium 139 Potassium 3.9 Chloride 98.6 Carbon Dioxide 26 Anion Gap 18 BUN 15 Creatinine 0.6 L Estimated GFR > 60 BUN/Creatinine Ratio 25 Glucose 91 Calcium 9.0 Phenytoin 7.3 L - Medical Decision Making Mr. Dash has history of epilepsy and presents with breakthrough seizures. He takes Dilantin 100 mg 3 times daily. On previous occasion it appears that he has been treated with Keppra in past in addition to Dilantin. I have reviewed labs. Phenytoin level was not therapeutic. Mildly elevated WBC, leukocytosis attributed to demarginalization. No indication of infection on presentation today. He received IV keppra load upon arrival after witnessed seizure in the ED. He also received Fosphenytoin load IV. I have prescribed Keppra 500 mg BID for the next 30 days until he is able to see a neurologist for medical management. I encouraged f/u with his PCP. Critical care attestation.: If time is entered above; I have spent that time in minutes in the direct care of this critically ill patient, excluding procedure time. ED Disposition Clinical Impression: Breakthrough seizure, Epilepsy Disposition: DC- TO HOME OR SELFCARE Is pt being admited?: No Does the pt Need Aspirin: No Condition: Stable Instructions: Epilepsy (ED) Prescriptions: levETIRAcetam [Keppra TAB] 500 mg PO BID 30 Days #60 tablet Referrals: AILYN HAMILTON MD [Staff Physician] - [facility]
[2019-03-27] MEDS ORDERED: LORazepam 2 MG/ML VIAL IV ONE (12:59)
[2019-03-27] MEDS ORDERED: LORazepam 2 MG/ML VIAL ONE (12:59)
[2019-03-27 13:14] LABS: Hematocrit 39.2 % (35.5-45.6); Hemoglobin 13.7 gm/dl (11.8-15.2); Mean Corpuscular HGB Conc 35 % (32-34); Mean Corpuscular Volume 89 fl (84-94); Platelet Count 309 K/mm3 (140-440); Red Cell Distribution Width 12.4 % (13.2-15.2)
[2019-03-27 13:36] LABS: BUN/Creatinine Ratio 25; Blood Urea Nitrogen 15 mg/dL (9-20); Hemolysis Index 0
[2019-03-27] MEDS ORDERED: FOSPHENYTOIN 1,000 MG.PE in SODIUM CHLORIDE 0.9% 100 ML IV ONE (15:08)
[2019-03-27 18:06] VITALS: BP 107/63
== END 2019-03-27 18:26 | disposition home or self-care (01) ==
LOC: ED 12:27
DX: G40.909 Epilepsy, unspecified, not intractable, without status epilepticus (principal); Z79.899 Other long term (current) drug therapy
CPT/HCPCS: 36415; 80048; 80185; 82962; 85027; 96365; 96375; 99284; J1953; J2060; Q2009